=== PATIENT | male | born 2000 | race Caucasian/White ===

== ENCOUNTER 2020-12-31 20:52 | Emergency (ER) ==
[~2020-12-31] VITALS: Ht 172.7 cm; Wt 80.0 kg
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
== END 2021-01-01 02:00 | disposition left against medical advice (07) ==
LOC: M ED 20:52
DX: Z53.29 Procedure and treatment not carried out because of patient's decision for other reasons (principal)

== ENCOUNTER → 2021-09-18 | Outpatient (REF) | LOC: M PLAIMG 14:30 | PROVIDERS: ATTEND Internal Medicine | DX: R52 Pain, unspecified (principal); R06.02 Shortness of breath ==

== ENCOUNTER 2022-10-01 10:37 | Day surgery (SDC) | payer OTHER ==
[~2022-10-01] VITALS: Ht 175.3 cm; Wt 88.5 kg
[~2022-10-01 10:37] MED LIST: APAP325T4 PO; IBUP80TA PO; MECL-86 PO; NORT10CA2 PO; NS 1,000 ML IV ONE; ONDA-195 PO
[2022-10-01] MEDS ORDERED: fentaNYL 100 MCG/2 ML INJECTION As Ordered ONE (12:06)
[2022-10-01] MEDS ORDERED: LIDOCAINE 2% 100MG/5ML SDV (FOR ANES.) As Ordered ONE (12:25)
[2022-10-01] MEDS ORDERED: propofoL 200 MG/20 ML VIAL As Ordered ONE (12:25)
[2022-10-01 12:41] VITALS: BP 118/73; O2SAT 100
== END 2022-10-01 12:43 | disposition home or self-care (01) ==
LOC: M OPP 10:37
PROVIDERS: ATTEND Surgery
DX: K51.40 Inflammatory polyps of colon without complications (principal); K62.5 Hemorrhage of anus and rectum; Z80.0 Family history of malignant neoplasm of digestive organs; F17.200 Nicotine dependence, unspecified, uncomplicated; Z79.1 Long term (current) use of non-steroidal anti-inflammatories (NSAID); Z79.52 Long term (current) use of systemic steroids; Z79.899 Other long term (current) drug therapy; Z88.1 Allergy status to other antibiotic agents; Z88.8 Allergy status to other drugs, medicaments and biological substances; Z91.011 Allergy to milk products
CPT/HCPCS: 45380; 88305; J3010